=== PATIENT | female | born 1960 | race African-American/Black ===

== ENCOUNTER 2023-12-13 04:24 | Day surgery (SDC) | payer OTHER ==
[2023-12-13 10:19] VITALS: TEMP 98.4
[2023-12-13 10:49] VITALS: BP 113/66; PULSE 68; RESP 18
== END 2023-12-13 10:50 | disposition home or self-care (01) ==
LOC: JASU-ENDO 04:24
PROVIDERS: ATTEND Internal Medicine Gastroenterology
PROC: 0DBL8ZX Excision of Transverse Colon, Via Natural or Artificial Opening Endoscopic, Diagnostic (ICD-10-PCS; 2023-12-13)
PROC: 0DBK8ZX Excision of Ascending Colon, Via Natural or Artificial Opening Endoscopic, Diagnostic (ICD-10-PCS; principal; 2023-12-13 09:30)
DX: Z12.11 Encounter for screening for malignant neoplasm of colon (principal); D12.2 Benign neoplasm of ascending colon; K63.5 Polyp of colon; K64.8 Other hemorrhoids; K57.30 Diverticulosis of large intestine without perforation or abscess without bleeding; I10 Essential (primary) hypertension
CPT/HCPCS: 88305-TC